=== PATIENT | male | born 1950 | race Caucasian/White ===

== ENCOUNTER 2016-05-24 11:07 | Day surgery (SDC) | payer MEDICARE ==
[~2016-05-24] VITALS: Ht 185.4 cm; Wt 83.2 kg
[~2016-05-24 11:07] MED LIST: ALPR1TAB3 PO; AMLO10TA2 PO; ASPI1TAB69 PO; BENA40TA PO; HYDR25TA5 PO; METO50TA PO; PLAV75TA29 PO; PRAV40TA2 PO; ZYRT10CA PO
[2016-05-24] MEDS ORDERED: ASPIRIN 325 MG TAB PO SCH (11:15)
[2016-05-24 11:46] VITALS: BP 137/84; PULSE 67; RESP 17; TEMP 98.2; O2SAT 97
[2016-05-24] MEDS ORDERED: SODIUM CHLOR 0.9% 1000 ML INJ 1,000 ML IV SCH (12:00)
[2016-05-24] MEDS ORDERED: BENA20TA PO (12:02)
[2016-05-24] MEDS ORDERED: NITR1SUB3 SL (12:02)
[2016-05-24] MEDS ORDERED: TOPR25TA PO (12:02)
[2016-05-24] MEDS ORDERED: LACTCAP8 PO (12:02)
[2016-05-24] MEDS ORDERED: SAW450CA2 PO (12:02)
[2016-05-24 12:15] LABS: AUTOMATED NEUTROPHIL # 5.5 TH/MM3 (1.8-7.7); BASOPHIL # 0.1 TH/MM3 (0-0.2); BASOPHIL % 0.8 % (0.0-2.0); EOSINOPHIL # 0.3 TH/MM3 (0-0.4); EOSINOPHIL % 4.2 % (0.0-4.0); HEMATOCRIT 40.3 % (39.0-51.0); HEMO FLAGS DIFF FINAL; LYMPH % 19.9 % (9.0-44.0); LYMPHOCYTE # 1.6 TH/MM3 (1.0-4.8); MEAN CELL VOLUME 90.1 FL (80.0-100.0); MEAN CORPUSCULAR HEMOGLOBIN 31.1 PG (27.0-34.0); MEAN CORPUSCULAR HGB CONC 34.5 % (32.0-36.0); MONO % 7.2 % (0.0-8.0); NEUT % 67.9 % (16.0-70.0); PLATELET COUNT 343 TH/MM3 (150-450); RED BLOOD COUNT 4.48 MIL/MM3 (4.50-5.90); RED CELL DISTRIBUTION WIDTH 13.2 % (11.6-17.2)
[2016-05-24 12:22] LABS: APTT (PATIENT) 27.9 SEC (24.3-30.1)
[2016-05-24 12:32] LABS: BICARBONATE 29.3 MEQ/L (21.0-32.0); POTASSIUM 3.8 MEQ/L (3.5-5.1)
[2016-05-24] MEDS ORDERED: HEPARIN-NS/PF INJ 500 ML ONE (12:59)
[2016-05-24] MEDS ORDERED: MIDAZOLAM HCL 2 MG/2 ML VIAL ONE (13:07)
[2016-05-24] MEDS ORDERED: MIDAZOLAM HCL 5 MG/5 ML VIAL ONE (13:29)
[2016-05-24] MEDS ORDERED: IOHEXOL 350 MG/ML 100 ML BTL (for Cath Lab) OTHER ONE (14:00)
[2016-05-24 14:24] LABS: INTERNATIONAL NORMALIZED RATIO 0.9 RATIO; PROTHROMBIN TIME - PATIENT 10.1 SEC (9.8-11.6)
--- NOTE | 2016-05-25 13:11 | EKG ---
Date Performed: 05/24/2016 Time Performed: 11:46:16 PTAGE: 65 years EKG: Sinus rhythm Right bundle branch block Abnormal ECG Compared to prior tracing no significant change PREVIOUS TRACING : 03/30/2015 15.26 DOCTOR: Saturnino Geroge Interpretating Date/Time 05/25/2016 13:09:52
[2016-05-27] MEDS ORDERED: ALPR1TAB3 PO (12:41)
--- NOTE | 2016-05-27 13:34 | MA ---
cc: TREY SOTO MD, HUMAYUN A. M.D. DATE: 05/24/2016 INDICATION Increasing chest pain and shortness of breath on exertion. The patient has a history of prior stent placement, wanted to proceed with directed heart cath, refused stress test. CONSENT Full informed consent was obtained prior to the procedure, the risk of , bleeding, myocardial infarction, perforation, aspiration, foreseen and unforeseen complications were reviewed. The patient fully appeared to understand the risks. PROCEDURAL STATEMENT The patient was prepped and draped in the usual manner. The right femoral artery was entered using micropuncture technique with ultrasound. Via the 4-[place] sheath the left and right coronary catheters were used to intubate the left and right coronaries. Pigtail catheter was used to intubate the left ventricle. Multiple angiographic views were carried out. At the end of the catheterization procedure all catheters and sheaths were removed. Manual pressure was applied until good hemostasis was achieved and the patient returned to his room in stable condition. FINDINGS HEMODYNAMICS The aortic pressure was 134/78 with a mean of 101. The left ventricular pressure was 144 with a left ventricular end-diastolic pressure ___. No evidence of gradient on pullback of the LV outflow tract and the aortic valve. LEFT VENTRICULOGRAM The overall left ventricular ejection fraction was 50%. No evidence of significant mitral regurgitation or mural thrombus. CORONARIES The left main is free of significant disease. The left anterior descending artery had ostial stenosis of about 30%. In the proximal LAD there was 30-40% stenosis. Just after the first diagonal branch is a 50% stenosis. There is evidence of a stent in this area of the LAD which is widely patent. Just proximal to this long stent in the LAD is a 50% stenosis as noted above. The circumflex vessel is a large vessel. In the mid circumflex there is evidence of a 50% stenosis. In the OM1 is a long stent that has jailed the circumflex that is widely patent and shows no significant in-stent restenosis. The circumflex vessel itself is a small obtuse marginal branch distally and there is evidence of a stent. The right coronary artery is a very tortuous vessel. There is evidence of a proximal hairpin with diffuse disease throughout the vessel. In the mid third of the vessel there is an evidence of two previously placed stents. Proximal to this there is some diffuse 25-50% disease. Distal to this there is evidence of further 50% disease. In the better view for the distal vessel there is evidence of 50% disease just before the crux. There is also in the cranial view evidence of further 60-70% disease. CONCLUSION Significant three-vessel disease with prior history of multiple stents, evidence now of disease as noted above in the LAD and circumflex was widely patent stents, widely patent stents x2 in the right coronary, some distal disease in the distal right of 60-70% which is marginal. Do not believe this is the cause of the patient's pain. Will plan to reevaluate with a nuclear stress test if he continues to have symptoms. We will also try inhalers, etc., to see if this occludes his shortness of breath before embarking on a relatively difficult very distal right stenosis with diffuse disease in the proximal and mid right with prior stents that are worrisome. Andra Hills MD, FRCP,FACC CARINE/HALEY /2:06 PM /12:56 PM
[2016-06-18] MEDS ORDERED: ALPR1TAB3 PO (14:57)
[2016-06-21] MEDS ORDERED: BENA20TA PO (14:26)
[2016-06-21] MEDS ORDERED: HYDR25TA5 PO (14:26)
[2016-06-21] MEDS ORDERED: ALPR1TAB3 PO (14:26)
[2016-06-21] MEDS ORDERED: PRAV40TA2 PO (14:26)
[2016-06-21] MEDS ORDERED: ZYRT10CA PO (14:26)
[2016-06-21] MEDS ORDERED: PLAV75TA29 PO (14:26)
[2016-06-21] MEDS ORDERED: TOPR25TA PO (14:26)
[2016-09-17] MEDS ORDERED: ALPR1TAB3 PO (13:45)
== END 2016-05-24 19:39 | disposition home or self-care (01) ==
LOC: HDOC 11:07 → HDIC 11:08 → HDOC 19:39
PROVIDERS: ATTEND Internal Medicine Cardiovascular Disease
DX: R07.9 Chest pain, unspecified (principal); R06.02 Shortness of breath
CPT/HCPCS: 80048; 85025; 85610; 85730; 93005; 93458; C1769; C1893; J1644; J2250; J3010; Q9967